=== PATIENT | female | born 1990 | race Two or more races ===

== ENCOUNTER → 2024-04-25 | Outpatient (BNVA) | payer MEDICAID, SELFPAY | END | disposition home or self-care (01) | PROVIDERS: PCP Nurse Practitioner Primary Care; Referring Provider Nurse Practitioner Primary Care; Visit Provider Nurse Practitioner Primary Care | DX: J02.0 Streptococcal pharyngitis (principal) | CPT/HCPCS: 99212 ==

== ENCOUNTER → 2024-05-02 | Outpatient (BNVA) | payer MEDICAID, SELFPAY | END | disposition home or self-care (01) | PROVIDERS: PCP Nurse Practitioner Family; Referring Provider Nurse Practitioner Family; Visit Provider Nurse Practitioner Family | DX: Z71.2 Person consulting for explanation of examination or test findings (principal); B96.81 Helicobacter pylori [H. pylori] as the cause of diseases classified elsewhere | CPT/HCPCS: 99212; G0463 ==

== ENCOUNTER → 2024-05-12 | Outpatient (BNVA) | payer MEDICAID, SELFPAY | END | disposition home or self-care (01) | PROVIDERS: PCP Nurse Practitioner Primary Care; Referring Provider Nurse Practitioner Primary Care; Visit Provider Nurse Practitioner Primary Care | DX: Z71.2 Person consulting for explanation of examination or test findings (principal) | CPT/HCPCS: 99212; G0463 ==

== ENCOUNTER → 2024-05-23 | Outpatient (BNVA) | payer MEDICAID, SELFPAY | END | disposition home or self-care (01) | PROVIDERS: PCP Nurse Practitioner Family; Referring Provider Nurse Practitioner Family; Visit Provider Nurse Practitioner Family | DX: Z00.01 Encounter for general adult medical examination with abnormal findings (principal); E66.9 Obesity, unspecified; Z68.30 Body mass index [BMI] 30.0-30.9, adult; Z23 Encounter for immunization; E55.9 Vitamin D deficiency, unspecified; Z13.220 Encounter for screening for lipoid disorders; G43.909 Migraine, unspecified, not intractable, without status migrainosus | CPT/HCPCS: 90471; 90686; 99215 ==

== ENCOUNTER → 2024-06-09 | Outpatient (BNVA) | payer MEDICAID, SELFPAY | END | disposition home or self-care (01) | PROVIDERS: PCP Nurse Practitioner Family; Referring Provider Nurse Practitioner Family; Visit Provider Nurse Practitioner Family | DX: Z30.013 Encounter for initial prescription of injectable contraceptive (principal); Z71.2 Person consulting for explanation of examination or test findings; E55.9 Vitamin D deficiency, unspecified | CPT/HCPCS: 81025; 96372; 99214; J1050 ==

== ENCOUNTER → 2024-08-26 | Outpatient (BNVA) | payer MEDICAID, SELFPAY | END | disposition home or self-care (01) | PROVIDERS: PCP Nurse Practitioner Family; Referring Provider Nurse Practitioner Family; Visit Provider Nurse Practitioner Family | DX: Z30.42 Encounter for surveillance of injectable contraceptive (principal) | CPT/HCPCS: 96372; 99215; J1050 ==

== ENCOUNTER → 2024-11-24 | Outpatient (BNVA) | payer MEDICAID, SELFPAY | END | disposition home or self-care (01) | PROVIDERS: PCP Nurse Practitioner Family; Referring Provider Nurse Practitioner Family; Visit Provider Nurse Practitioner Family | DX: Z30.2 Encounter for sterilization (principal); Z30.42 Encounter for surveillance of injectable contraceptive; Z23 Encounter for immunization | CPT/HCPCS: 81025; 90471; 90715; 96372; 99214; J1050 ==

== ENCOUNTER 2024-11-25 14:12 | Outpatient (AMB) | payer MEDICAID, SELFPAY ==
[2024-11-25 14:30] VITALS: BP 119/80; PULSE 91; RESP 17; TEMP 36.6; O2SAT 97; BMI 33.2
--- NOTE | 2024-11-25 14:30 | AMB.GYNCLNOT ---
Vital Signs 11/25/24 14:30 Height 1.51 m Height Method Measured Weight 75.807 kg Weight Measurement Method Standing Scale BMI 33.2 BP 119/80 Blood Pressure Source Automatic Cuff Blood Pressure Location Right Upper Arm Position Sitting Respiration 17 Pulse 91 Pulse Source Monitor Temp 97.8 F Temp Source Temporal Artery Scan Pulse Oximetry (%) 97 Oxygen Delivery Method Room Air Allergies/Home Meds Allergies & Medications Allergies No Known Allergies Allergy (Verified 11/25/24 14:30) Medication Reconciliation No Known Home Medications 08/26/24 [History Confirmed 11/25/24] Intake Visit Data Collection New Patient or Established: Established Patient (seen at [facility] within 3 years) Reason for Visit:: REF STERILIZATION Consent obtained for Telemed Visit: No Seen by Clinical Staff ONLY (RN/MA): No 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: No Do You Feel Safe at Home: Yes Authorities Contacted: N/A PCP or OBGYN visit in last 3 months: Yes Date of Last PCP or OBGYN visit: 11/24/24 Hx Now: No Are you currently on any form of Control: No Pain Present Currently: No Pain Scale Used: Gilmore-Leslie/Numerical Pain scale:: 0 Smoking Status Smoking Status: Never smoker 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 1. Little interest or pleasure in doing things: not at all PHQ-9 3. Trouble falling or staying asleep, or sleeping too much: Not at all 4. Feeling tired or having little energy: Not at all 5. Poor appetite or overeating: Not at all 6. Feeling bad about yourself - or that you are a failure or have let yourself or your family down: Not at all 7. Trouble concentrating on things, such as reading the newspaper or watching television: Not at all 8. Moving or speaking so slowly that other people could have noticed? - Or the opposite - being so fidgety or restless that you have been moving around a lot more than usual: not at all 9. Thoughts that you would be better off or of hurting yourself in some way: Not at all If you checked off any problems, how difficult have these problems made it for you to do your work, take care of things at home, or get along with other people?: not difficult at all Source: Developed by Drs. Aguilar Ritter, Linda Ventura, Khanh Starkey and colleagues, with an educational allyson from [employer]. Depression screen completed yes Social History Living Situation History Lives With: Spouse Housing: Apartment Housing Other:: 5 SONS Tobacco History Smoking Status: Never smoker Second Hand Smoke Exposure: No Alcohol History Alcohol Intake: Never Substance Use History Substance Use: NONE Domestic Abuse History Do You Feel Safe at Home: Yes History of Present Illness HPI Narrative Patient is a female with a history of 4 vaginal deliveries, presenting for a surgical consultation for laparoscopic tubal ligation. She is 4, para 4. Patient reports no prior knowledge about the procedure and is seeking information. She expresses a desire for permanent contraception through tubal ligation and understands that the procedure is permanent and irreversible. Patient has not reported any specific symptoms, complaints related to her reproductive health, or recent changes in her overall health status. Her obstetric history includes A0 L4, with 4 vaginal deliveries. Patient has 4 children. Exam General General Appearance: alert, in no apparent distress and healthy appearing Head Head exam: atraumatic Neck Neck exam: Present normal inspection and trachea midline Chest Chest inspection: Present normal inspection and symmetric chest wall rise External exam: Present normal external exam; Absent tenderness Neuro Neurological exam: Present oriented X3 Psych Psychiatric exam: Present normal affect and normal mood Office Procedures OB Clinic LOC & Office Proc's Nursing/Assessment Patient Status: Established Patient OB Clinic Nursing Assessment: Medication Reconciliation, Update PMH in EMR and Vital Signs OB Clinic Coordination of Care: Complex Care and Chronic Disease 1-5, Consent,records obtained, informed consent, Education Simp Pt/Fam and 4+ Authorizations needed Established Patient Charge Established Patient Point Assignment: 100 Established Patient Point Charge: EP Level 3 (80-115) Assessment & Plan Diagnosis / Problem List (1) Encounter for sterilization: Status: Acute Plan Desire for permanent contraception: - Patient seeking laparoscopic tubal ligation for permanent contraception. - Completed childbearing with 4 vaginal deliveries. - No prior knowledge of the procedure, indicating need for comprehensive education. Plan for laparoscopic bilateral salpingectomy: - Discussed permanence and irreversibility of the procedure. - Explained surgical approach: 3 small incisions for camera and instruments. - Informed about outpatient procedure with same-day discharge. - Provide consent form for patient to sign. - Implement mandatory 30-day waiting period after consent signing. - Coordinate with insurance for approval. - Schedule pre-operative visit for additional questions and final consent. Post-operative instructions: - Advised bed rest on the day of surgery. - Informed about expected return to normal activities starting the day after surgery. Patient education: - Emphasized permanent nature of procedure. - Discussed option to cancel surgery if patient changes mind. - Encouraged patient to conduct independent research and prepare questions for pre-operative visit.
== END 2024-11-25 15:18 | disposition home or self-care (01) ==
LOC: HODSOBC 14:12
PROVIDERS: PCP Nurse Practitioner Family; Referring Provider Nurse Practitioner Family; Supervising Provider Obstetrics & Gynecology; Visit Provider Obstetrics & Gynecology
DX: Z30.2 Encounter for sterilization (principal)
CPT/HCPCS: 99213; G0463

== ENCOUNTER 2025-02-03 11:24 | Outpatient (AMB) | payer MEDICAID, SELFPAY ==
--- NOTE | 2025-02-03 11:32 | GYNCLNT_ITS ---
Vital Signs 02/03/25 11:33 Height 1.51 m Height Method Measured Weight 77.621 kg Weight Measurement Method Standing Scale BMI 34.0 BP 128/81 Blood Pressure Source Automatic Cuff Blood Pressure Location Right Upper Arm Position Sitting Respiration 18 Pulse 79 Pulse Source Monitor Temp 97.5 F Temp Source Temporal Artery Scan Pulse Oximetry (%) 98 Oxygen Delivery Method Room Air Allergies/Home Meds Allergies & Medications Allergies No Known Allergies Allergy (Verified 01/30/25 09:16) Intake Visit Data Collection New Patient or Established: Established Patient (seen at [facility] within 3 years) Reason for Visit:: PREOP BTL/NEXPLANON REMOVAL 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 Required: Yes 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's name/title: JW ANDERSON Do You Feel Safe at Home: Yes Authorities Contacted: N/A PCP or OBGYN visit in last 3 months: Yes Date of Last PCP or OBGYN visit: 11/25/24 Hx Now: No Are you currently on any form of Control: Yes Pain Present Currently: No Smoking Status Smoking Status: Never smoker 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 1. Little interest or pleasure in doing things: not at all PHQ-9 8. Moving or speaking so slowly that other people could have noticed? - Or the opposite - being so fidgety or restless that you have been moving around a lot more than usual: not at all Source: Developed by Drs. Aguilar Ritter, Linda Ventura, Khanh Starkey and colleagues, with an educational allyson from [email or web address]. Social History Living Situation History Lives With: Spouse Housing: House Housing Other:: 5 SONS Tobacco History Smoking Status: Never smoker Second Hand Smoke Exposure: No Alcohol History Alcohol Intake: Never Substance Use History Substance Use: NONE Domestic Abuse History Do You Feel Safe at Home: Yes History of Present Illness HPI Narrative Robyn Sarkar presents for a pre-operative visit in preparation for her scheduled surgery on . The patient is scheduled as the first case on , with the surgery set to begin at 7:30 AM. She has been instructed to arrive at the hospital at 5:30 AM. The patient confirms that she has completed the necessary admission procedures with the hospital. She does not express any specific questions or concerns about the upcoming procedure. The surgery is expected to be an outpatient procedure, with the patient anticipated to be discharged approximately two hours after the operation. ROS: Negative except as stated above, limited to AIRPORT MAINTENANCE CHIEF and pertinent complaints. Exam General General Appearance: alert, in no apparent distress and healthy appearing Head Head exam: atraumatic Neck Neck exam: Present normal inspection and trachea midline Chest Chest inspection: Present normal inspection and symmetric chest wall rise External exam: Present normal external exam; Absent tenderness Neuro Neurological exam: Present oriented X3 Psych Psychiatric exam: Present normal affect and normal mood Office Procedures OBC Clinic LOC & Office Proc's Nursing/Assessment Patient Status: Established Patient OB Clinic Nursing Assessment: Medication Reconciliation, Update PMH in EMR and Vital Signs OB Clinic Coordination of Care: Complex Care and Chronic Disease 1-5, Education Complex Pt/Fam, Consent,records obtained, informed consent, Lab and Imaging orders and Staff clarify orders Established Patient Charge Established Patient Point Assignment: 105 Established Patient Point Charge: EP Level 3 (80-115) Assessment & Plan Diagnosis / Problem List (1) Encounter for sterilization: Status: Acute Plan Scheduled Surgery: - Patient is scheduled for surgery on . - First case of the day, indicating priority procedure. - Patient has completed pre-admission processes with the hospital. Plan: - Surgery scheduled for at 7:30 AM. - Patient to arrive at the hospital at 5:30 AM. - Meet with patient before surgery to sign necessary paperwork. - Perform surgery. - Anticipate discharge approximately 2 hours post-surgery. - Follow-up as needed.
[2025-02-03 11:33] VITALS: BP 128/81; PULSE 79; RESP 18; TEMP 36.4; O2SAT 98; BMI 34.0
== END 2025-02-03 12:53 | disposition home or self-care (01) ==
LOC: HODSOBC 11:24
PROVIDERS: Supervising Provider Obstetrics & Gynecology; Visit Provider Obstetrics & Gynecology
DX: Z30.2 Encounter for sterilization (principal)
CPT/HCPCS: 99213; G0463

== ENCOUNTER 2025-02-05 05:30 | Day surgery (SDC) | payer MEDICAID, SELFPAY ==
[2025-01-30 09:16] VITALS: BMI 31.1
[2025-01-30 09:44] LABS: Basophils # (Auto) 0.0 Thou/mm3 (0.0-0.2); Basophils % (Auto) 0 % (0-2.5); Eosinophils # (Auto) 0.1 Thou/mm3 (0.0-0.5); Eosinophils % (Auto) 1 % (0-10); Hematocrit 40.5 % (36.0-46.0); Hemoglobin 14.1 g/dL (12.0-16.0); Immature Granulocytes Auto 0.09 Thou/mm3 (0.00-0.00); Lymphocytes # (Auto) 2.6 Thou/mm3 (1.0-4.8); Lymphocytes % (Auto) 25 % (10-50); Mean Corpuscular HGB Conc 34.8 g/dl (31.0-37.0); Mean Corpuscular Hemoglobin 30.9 pg (25.0-35.0); Mean Corpuscular Volume 89 fL (80-100); Monocytes # (Auto) 0.6 Thou/mm3 (0.0-0.8); Monocytes % (Auto) 6 % (0-12); Neutrophils # (Auto) 7.0 Thou/mm3 (1.8-7.7); Neutrophils % (Auto) 67 % (37-80); Nucleated Red Blood Cell # 0.00 Thou/mm3 (0.00-0.00); Nucleated Red Blood Cell % 0 /100 WBC (0); Platelet Count 264 Thou/mm3 (140-440); RDW Standard Deviation 38.8 fL (36.4-46.3); Red Blood Count 4.57 Miln/mm3 (4.00-5.20); White Blood Count 10.4 Thou/mm3 (3.6-11.0)
[2025-01-30 10:12] LABS: Alanine Aminotransferase 20 U/L (10-49); Albumin, Serum 4.5 gm/dL (3.5-5.0); Albumin/Globulin Ratio 1.5 (1.2-2.2); Alkaline Phosphatase 86 U/L (46-116); Anion Gap 10 (7-16); Aspartate Amino Transferase 19 U/L (0-34); BUN/Creatinine Ratio 14 Ratio (12-20); Bilirubin,Total 0.7 mg/dL (0.3-1.2); Blood Urea Nitrogen 10 mg/dL (9-23); Calcium 9.3 mg/dL (8.3-10.6); Calcium (Corrected) 9.3 mg/dL (8.5-10.1); Carbon Dioxide 25.3 mMol/L (20.0-31.0); Chloride 106 mMol/L (98-107); Creatinine (Component) 0.7 mg/dL (0.6-1.3); Estimated Creatinine Clearance 102.8 mL/min (>60); Globulin 3.0 gm/dL (2.3-3.5); Glucose 99 mg/dL (74-106); Osmolality,Calculated 280 (275-295); Potassium 3.6 mMol/L (3.4-5.1); Sodium 141 mMol/L (136-145); Total Protein 7.5 gm/dL (5.7-8.2); eGFR > 60 See Note
[2025-01-30 10:43] LABS: HCG,Qualitative Serum Negative
[2025-02-05] VITALS (7 sets, daily range): BP systolic 111–125; BP diastolic 62–80; PULSE 68–83; RESP 16–20; TEMP 36.1–36.4; O2SAT 96–100; BMI 32.4
--- NOTE | 2025-02-05 08:17 | SUR.PHASEI ---
0817: Pt. arrived with oral airway in place, vitals stable, breathing unlabored, no signs of distress, x3 dermabond sites to ABD CDI, no active bleed noted, report received from Monik CANDELARIO and MD Michel.
[2025-02-05] MEDS: fentaNYL CIT INJ 50 mCg/ML AMP 2ML 25 MCG IVP ×2 (08:34→08:40)
--- NOTE | 2025-02-05 09:15 | SUR.PHASEII ---
0915: Pt. AAOx4, vitals stable, breathing unlabored, no complaint of pain or nausea, x3 dermabond sites to ABD CDI, no active bleed noted, pt. tolerated sips of water well, pt. ambulated to wheelchair with steady gait and no assist, no complications. Gave discharge instructions to the pt. and her ride, both verbalized understanding and had no further questions. Pt. left with all personal belongings.
--- NOTE | 2025-02-05 09:38 | PD.GYNPROC ---
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 Identity was confirmed using two patient identifiers. General anesthesia was administered, and the patient was placed in dorsal lithotomy position. The abdomen and perineum were prepped and draped in sterile fashion. A Emery catheter was inserted for continuous drainage. Surgical timeout was performed. Peritoneal access was achieved via a 5 mm umbilical port, and pneumoperitoneum was established. Two additional ports were placed under direct visualization: a 5 mm port on the left and a 7 mm port on the right, for a total of three ports. Diagnostic survey of the abdomen and pelvis was unremarkable. The ENSEAL device was used to perform a stepwise salpingectomy, beginning on the right side. The entire length of the fallopian tube was dissected from the fimbriated end to the cornual attachment. A small amount of oozing from the right infundibulopelvic ligament was noted and controlled with cautery. Attention was then turned to the left side, and the left fallopian tube was dissected similarly using the ENSEAL. Final inspection confirmed complete bilateral salpingectomy and hemostatic surgical field. No complications were noted. The peritoneal cavity was irrigated and suctioned dry. Pneumoperitoneum was desufflated, and all port sites were closed using 4-0 Monocryl in subcuticular fashion. Dermabond was applied to all incisions. The patient was extubated and transferred to the recovery unit in stable condition. She tolerated the procedure well. All instrument, sponge, and lap counts were correct ?2. Specimen: left tube and right tube Estimated blood loss (ml): 25 Complications: none Surgical staff Operation Date: 02/05/25 07:30 Case Staff Anesthesiologist: Antonino Michel RN First Assistant: Alonso Martin Diagnosis Discharge Diagnosis (1) Encounter for sterilization: Status: Acute Problem List Completed Was Problem List Reviewed/Reconciled?: Yes
== END 2025-02-05 09:15 | disposition home or self-care (01) ==
PROVIDERS: PCP Nurse Practitioner Family; Referring Provider Obstetrics & Gynecology; Visit Provider Obstetrics & Gynecology
PROC: (CPT 58670; principal; 2025-02-05 07:30)
DX: Z30.2 Encounter for sterilization (principal)
CPT/HCPCS: 58661; 36415; 80053; 84703; 85025; 86850; 86900; 86901; A4649; J0131; J1100; J1885; J2250; J2405; J2704; J3010; J3490; A9270

== ENCOUNTER → 2025-02-13 | Outpatient (BNVA) | payer MEDICAID, SELFPAY | END | disposition home or self-care (01) | PROVIDERS: PCP Nurse Practitioner Family; Referring Provider Nurse Practitioner Family; Visit Provider Nurse Practitioner Family | DX: G43.909 Migraine, unspecified, not intractable, without status migrainosus (principal); Z23 Encounter for immunization | CPT/HCPCS: 90471; 90686; 99213 ==